=== PATIENT | male | born 1955 | race Caucasian/White ===

== ENCOUNTER 2023-12-30 14:04 | Observation (INO) | payer BC, OTHER ==
[2023-12-30 15:04] LABS: BASO % 0.4 % (0-2.0); EOS % 1.5 % (0-4.5); HEMATOCRIT 42.2 % (35.4-49); HEMOGLOBIN 14.4 GM/dL (11.7-16.9); LYMPH % 10.5 % (8-40); MCHC 34.1 g/dl (32.0-35.9); MEAN CELL VOLUME 90.7 fl (80-96); MEAN PLT VOLUME 7.5 fl (7.5-11.1); MONO % 7.5 % (3.8-10.2); NEUT % 80.1 % (42.8-82.8); PLATELET COUNT 193 10^3/uL (134-434); RBC 4.66 M/mm3 (4.00-5.60); RDW 14.2 % (11.9-15.9); WHITE BLOOD COUNT 8.5 K/mm3 (4.0-10.0)
[2023-12-30 15:10] LABS: INR 0.96 (0.83-1.09)
[2023-12-30 15:12] LABS: ACTIVATED PTT 32.2 SECONDS (25.2-36.5)
[2023-12-30 15:23] LABS: BLOOD UREA NITROGEN 15.3 mg/dL (7-18); CALCIUM 9.2 mg/dL (8.5-10.1); POTASSIUM 3.8 mmol/L (3.5-5.1)
[2023-12-30 15:26] LABS: CREATININE 1.4 mg/dL (0.55-1.3)
[2023-12-30 15:28] LABS: BILIRUBIN,TOTAL 0.7 mg/dL (0.2-1); TOT PROT 7.8 g/dl (6.4-8.2)
[2023-12-30] MEDS: ACETAMINOPHEN 1000 MG/100 ML BAG IVPB ONE (15:54)
[2023-12-30] MEDS ORDERED: ACETAMINOPHEN INJECTION 100 ML IVPB ONE (15:55)
[2023-12-30] MEDS ORDERED: ACETAMINOPHEN 1000 MG/100 ML BAG IVPB PRN (16:28)
[2023-12-30] MEDS ORDERED: MORPHINE SULFATE 2 MG/ML SYRINGE IM PRN (16:28)
[2023-12-30] MEDS ORDERED: PROPOFOL 20 ML ONE (17:24)
[2023-12-30] MEDS ORDERED: MIDAZOLAM HCL 2 MG/2 ML SINGLE DOSE VIAL ONE (17:25)
[2023-12-30] MEDS ORDERED: PROMETHAZINE HCL 25 MG/1 ML VIAL IVPB PRN ×2 (17:38→19:51)
[2023-12-30] MEDS ORDERED: oxyCODONE HCL 5 MG TABLET PO PRN ×2 (17:38→19:51)
[2023-12-30] MEDS ORDERED: LACTATED RINGERS SOLUTION 1,000 ML IV SCH (17:45)
[2023-12-30] MEDS ORDERED: GENTAMICIN SO4 80 MG/2 ML VIAL ONE (18:03)
[2023-12-30] MEDS ORDERED: ceFAZolin SODIUM 1 GM VIAL ONE ×2 (18:03)
[2023-12-30] MEDS: ceFAZolin SODIUM 1 GM VIAL IVPB ONE (18:07)
[2023-12-30] MEDS ORDERED: TAMSULOSIN HCL 0.4 MG CAP PO SCH (22:00)
[2023-12-30] MEDS: ACETAMINOPHEN 1000 MG/100 ML BAG IVPB PRN (22:08)
[2023-12-30] MEDS: TAMSULOSIN HCL 0.4 MG CAP PO SCH (22:08)
[2023-12-30] MEDS: LACTATED RINGERS SOLUTION 1,000 ML IV SCH (22:09)
[2023-12-30 22:30] VITALS: BMI 31.8
[2023-12-31 06:55] LABS: HEMATOCRIT 39.4 % (35.4-49); HEMOGLOBIN 13.5 GM/dL (11.7-16.9); MCH 31.2 pg (25.7-33.7); MCHC 34.3 g/dl (32.0-35.9); MEAN CELL VOLUME 90.8 fl (80-96); MEAN PLT VOLUME 8.1 fl (7.5-11.1); PLATELET COUNT 203 10^3/uL (134-434); RBC 4.34 M/mm3 (4.00-5.60); WHITE BLOOD COUNT 9.2 K/mm3 (4.0-10.0)
[2023-12-31 07:23] LABS: BLOOD UREA NITROGEN 11.7 mg/dL (7-18)
[2023-12-31 07:26] LABS: CREATININE 0.9 mg/dL (0.55-1.3); PHOSPHOROUS 2.6 mg/dL (2.5-4.9)
[2023-12-31 08:43] VITALS: RESP 18
[2023-12-31] MEDS ORDERED: MAGNESIUM HYDROX 2400MG/30ML ORAL SUSPENSION 30 ML CUP PO PRN (09:48)
[2023-12-31] MEDS: POLYETHYLENE GLYCOL (HEALTHYLAX) 3350 17 GM PACKET PO SCH (10:36)
[2023-12-31] MEDS: SENNOSIDES/DOCUSATE COMBO (SENNA PLUS) TABLET (UD) PO SCH (10:36)
[2023-12-31 12:15] VITALS: BP 142/80; PULSE 71; TEMP 98.4
== END 2023-12-31 13:49 | disposition home or self-care (01) ==
LOC: JER 14:04 → JERBED 16:15 → J7W 20:21
PROVIDERS: ADMIT Internal Medicine; ATTEND Nurse Practitioner
PROC: 3E0337Z Introduction of Electrolytic and Water Balance Substance into Peripheral Vein, Percutaneous Approach (ICD-10-PCS; 2023-12-30)
PROC: BT1FZZZ Fluoroscopy of Left Kidney, Ureter and Bladder (ICD-10-PCS; 2023-12-30)
PROC: 0TC78ZZ Extirpation of Matter from Left Ureter, Via Natural or Artificial Opening Endoscopic (ICD-10-PCS; 2023-12-30)
PROC: 0T778DZ Dilation of Left Ureter with Intraluminal Device, Via Natural or Artificial Opening Endoscopic (ICD-10-PCS; 2023-12-30)
PROC: 3E033NZ Introduction of Analgesics, Hypnotics, Sedatives into Peripheral Vein, Percutaneous Approach (ICD-10-PCS; principal; 2023-12-30 18:30)
DX: N20.0 Calculus of kidney (principal); N17.9 Acute kidney failure, unspecified; I16.0 Hypertensive urgency
CPT/HCPCS: 36415; 76000-TC-FY; 80048; 80053; 83735; 84100; 85025; 85027; 85610; 85730; 86850; 86900; 86901; 93005; 93010; 94760; 99285-25; C1758; C2617; G0378; J0131

== ENCOUNTER 2024-01-23 04:09 | Day surgery (SDC) | payer OTHER ==
[2024-01-20 15:11] VITALS: BMI 29.5
[2024-01-23 08:02] VITALS: RESP 18
[2024-01-23] MEDS ORDERED: MIDAZOLAM HCL 2 MG/2 ML SINGLE DOSE VIAL ONE (09:44)
[2024-01-23] MEDS ORDERED: ONDANSETRON 4 MG/2 ML VIAL ONE (09:44)
[2024-01-23 12:19] VITALS: BP 134/76; PULSE 67; TEMP 97.8
== END 2024-01-23 12:05 | disposition home or self-care (01) ==
LOC: JASU-SURG 04:09
PROVIDERS: ATTEND Urology
PROC: 0TF4XZZ Fragmentation in Left Kidney Pelvis, External Approach (ICD-10-PCS; principal; 2024-01-23 10:30)
DX: N20.0 Calculus of kidney (principal)

== ENCOUNTER 2024-03-05 04:20 | Day surgery (SDC) | payer OTHER ==
[2024-02-29 15:24] VITALS: BMI 31.0
[2024-03-05] MEDS ORDERED: ONDANSETRON 4 MG/2 ML VIAL ONE (10:41)
[2024-03-05] MEDS ORDERED: MIDAZOLAM HCL 2 MG/2 ML SINGLE DOSE VIAL ONE (10:43)
[2024-03-05 12:02] VITALS: TEMP 97.7
[2024-03-05 13:13] VITALS: BP 153/87; PULSE 57; RESP 18
== END 2024-03-05 13:24 | disposition home or self-care (01) ==
LOC: JASU-SURG 04:20
PROVIDERS: ATTEND Urology
PROC: 0TF4XZZ Fragmentation in Left Kidney Pelvis, External Approach (ICD-10-PCS; principal; 2024-03-05 11:07)
DX: N20.0 Calculus of kidney (principal)